=== PATIENT | male | born 1945 | race Caucasian/White ===

== ENCOUNTER → 2016-12-22 | Day surgery (SDC) | payer MEDICARE, BC ==
[~2016-12-22] VITALS: Ht 170.2 cm; Wt 64.4 kg
[~2016-12-22] MED LIST: AFRIN15 M1 INH; ASPIRIN325 MG PO; ATARAX25 MG PO; BENADRYL25 MG PO; COREG6.25 MG PO; MECLIZINE HCL12.5 MG PO; NORCO 7.5-3251 EACH PO; REFRESH TEARS15 ML OPHTH; ROCALTROL0.25 MCG PO; SOMA350 MG PO; TIROSINT50 MCG PO
--- NOTE | ~2016-12-22 | OR ---
PATIENT'S NAME: [facility] AGE: 71 Y [address] ROOM: [place] [address] LOCATION: [facility] [place] ADMIT DATE: 12/22/2016 OR/Procedure Report DISCHARGE DATE: FAMILY PHYSICIAN: Vickey Swanson MD ATTENDING PHYSICIAN: HEATH GARG SURGEON: Heath Garg MD FOOD SERVICE HELPER: DATE OF PROCEDURE: 12/22/2016 PREOPERATIVE DIAGNOSIS: End-stage renal disease. POSTOPERATIVE DIAGNOSIS: End-stage renal disease. PROCEDURE: Right arm brachiocephalic AV fistula. CARPET TECHNICIAN: RIMA Adams. ANESTHESIA: Block. ESTIMATED BLOOD LOSS: 5 mL. OPERATIVE FINDINGS: Strong thrill and bruit in the fistula. Strong radial signal at the end of the case. DESCRIPTION OF PROCEDURE: The patient was brought to the operating room, placed supine on the operative table, prepped and draped in a sterile manner. Preoperative time-out was performed. The patient received preoperative antibiotics. We made a standard incision 2 cm proximal to the antecubital fossa, dissected down the fascia, incised the fascia in a longitudinal manner, dissected out the brachial artery. We then dissected the cephalic vein which was right proximal to the artery. We then transected it distally after placing a large clip. We gave 5000 units of heparin. We made an arteriotomy, size of 4 mm and then did a standard 6-0 Prolene anastomosis from the vein to the artery. Clamps were removed. There was excellent flow in the fistula. Heparin was reversed with protamine. There was a strong radial signal and a strong thrill and bruit. There was not a strong ulnar signal, but the patient did have a scar in the ulnar region. I suspect he has had some sort of surgical intervention which has damaged the artery, but the radial artery signal was quite strong. Deep layers were closed with 2-0 and 3-0 Vicryl. Skin was closed with running 4-0 Monocryl. The patient tolerated the procedure well and transferred to recovery room and then home later that day. PATIENT'S NAME: [facility] AGE: 71 Y [address] ROOM: [place], [place] [address] LOCATION: [facility] [place] ADMIT DATE: 12/22/2016 OR/Procedure Report DISCHARGE DATE: FAMILY PHYSICIAN: Vickey Swanson MD ATTENDING PHYSICIAN: HEATH GARG MD FKM/modl /[id number] d: 12/23/16 0026 t: 12/26/16 0945, OPERATIVE SUMMARY
[2016-12-22 11:19] LABS: BASOPHIL # 0.1 K/uL (0.0-0.2); BASOPHIL % 0.6 %; EOSINOPHIL # 0.8 K/uL (0.0-0.5); HEMATOCRIT 33.5 % (37.0-53.0); HEMOGLOBIN 10.9 g/dL (11.0-16.0); IMMATURE GRANULOCYTE # 0.1 K/uL (0.0-0.3); IMMATURE GRANULOCYTE % 0.6 %; LYMPHOCYTE # 1.9 K/uL (0.8-4.0); LYMPHOCYTE % 19.9 %; MCH 31.1 pg (27.0-34.0); MCHC 32.5 gm/dL (32.0-36.5); MCV 95.4 fl (83.0-98.0); MONOCYTE # 0.7 K/uL (0.0-1.0); MONOCYTE % 6.9 %; MPV 9.9 fl (9.4-12.4); NEUTROPHIL # (ANC) 5.9 K/uL (1.4-9.0); NRBC % 0 /100WBC (0-0.00); PLATELET COUNT 137 K/uL (150-450); RBC 3.51 M/uL (3.50-5.50); RDW-CV 13.7 % (11.9-14.6); WBC 9.4 K/uL (4.0-11.0)
[2016-12-22 11:35] LABS: ALBUMIN 3.3 gm/dL (3.5-5.0); CALCIUM 8.3 mg/dL (8.5-10.5); POTASSIUM 4.3 mMol/L (3.7-5.1); TOTAL BILIRUBIN 0.2 mg/dL (0.0-1.5); TOTAL PROTEIN 6.7 g/dL (6.0-8.4)
[2016-12-22 11:38] LABS: ANION GAP 14.3 (10.0-19.0); CREATININE 4.6 mg/dL (0.6-1.3)
== END | disposition disaster alternative care site (69) ==
LOC: GPOC 12-17 11:00 → GSDC 10:41 → GPOC 11:00
PROVIDERS: Surgery Vascular Surgery
PROC: 03170JD Bypass Right Brachial Artery to Upper Arm Vein with Synthetic Substitute, Open Approach (ICD-10-PCS; principal; 2016-12-22)
DX: I12.0 Hypertensive chronic kidney disease with stage 5 chronic kidney disease or end stage renal disease (principal); N18.6 End stage renal disease; I25.10 Atherosclerotic heart disease of native coronary artery without angina pectoris; E03.9 Hypothyroidism, unspecified; E78.5 Hyperlipidemia, unspecified; K21.9 Gastro-esophageal reflux disease without esophagitis; M19.90 Unspecified osteoarthritis, unspecified site; Z87.891 Personal history of nicotine dependence; Z79.899 Other long term (current) drug therapy
CPT/HCPCS: J0690; J1644; J2001; J2250; J2405; J2720; J7030; J7120